=== PATIENT | female | born 1935 | race Caucasian/White ===

== ENCOUNTER 2016-11-22 05:23 | Day surgery (SDC) | payer MEDICARE, OTHER ==
[2016-10-31 11:20] VITALS: BMI 30.2
--- NOTE | 2016-11-02 08:11 | PREOPHP ---
DATE OF ADMISSION: 11/01/2016 HISTORY OF PRESENT ILLNESS: This 80-year-old patient is admitted for elective cataract surgery of the right eye. The patient has had decreased vision in both eyes over the past year which has been progressive in nature without prior history of eye disease or injury. The patient does have a positive systemic history of diabetes mellitus, hyperlipidemia, hypertension, syncope and hydronephrosis. MEDICATIONS: 1. Atenolol. 2. Metformin. ALLERGIES: PENICILLIN. SULFA. PHYSICAL EXAMINATION: The visual acuity best correct is 20/60 in each eye. External examination is noted to be within normal limits. The patient does have a nuclear sclerotic and posterior subcapsular cataract, greater in the right eye than the left eye. Applanation tonometry 17 mmHg. Examination of the retina is noted to be within normal limits. DIAGNOSIS: Cataract, right eye. PLAN: Cataract extraction with lens implant, right eye. The risks and alternatives to the surgery have been discussed with the patient, as well as the hope for improvement of visual acuity, leading to greater ability to perform activities of daily living. The patient understands this and agrees to proceed with surgery. Dictated By: Adebayo Chowdary MD /gray/ /Document#: [id number]
--- NOTE | 2016-11-21 17:00 | PREOPHP ---
DATE OF ADMISSION: 11/22/2016 HISTORY OF PRESENT ILLNESS: This 80-year-old patient is admitted for elective cataract surgery of the right eye. The patient has had decreased vision in both eyes for the past 1 year without prior history of eye disease or injury. PAST MEDICAL HISTORY: The patient's systemic history is positive for diabetes mellitus, hyperlipidemia, systemic hypertension, syncope, and hydronephrosis. MEDICATIONS: Atenolol and metformin. ALLERGIES: PENICILLIN AND SULFA. PHYSICAL EXAMINATION: EYES: On examination, the visual acuity with best correction, is 20/60 in both eyes. Slit lamp examination reveals nuclear sclerotic and posterior subcapsular cataract changes in both eyes. Applanation tonometry 17 mmHg and examination of the retina is within normal limits. DIAGNOSIS: Cataract, right eye. PLAN: Cataract extraction with lens implant, right eye. The risks and alternatives of the surgery have been discussed with the patient, as well as the hope for improvement of visual acuity leading to greater ability to perform activities of daily living. The patient understands this and agrees to proceed with surgery. Dictated By: Adebayo Chowdary MD /gray/davon /Document#: [id number]
[~2016-11-22] VITALS: Ht 157.5 cm; Wt 77.2 kg
[2016-11-22] VITALS (16 sets, daily range): BP systolic 55–134; BP diastolic 33–69; PULSE 54–78; RESP 14–25; Ht 157.5 cm; Wt 77.2 kg
[~2016-11-22 05:23] MED LIST: CIPROFLOXACIN 0.3% 2.5 ML OPH OPER SCH; CYCLOPENTOLATE/PHENYLEPH 2 ML OPH OPER SCH; DICLOFENAC 0.1% 2.5 ML OPH OPER SCH; TROPICAMIDE 1% 2 ML OPH OPER SCH
[2016-11-22] MEDS ORDERED: DEXAMETHASONE 4 MG/ML 1 ML INJ ONE (06:28)
[2016-11-22] MEDS ORDERED: GENTAMICIN 80 MG INJ ONE (06:28)
[2016-11-22] MEDS ORDERED: TETRACAINE 0.5% 4 ML OPH ONE ×2 (06:28→08:04)
[2016-11-22] MEDS ORDERED: LIDOCAINE 4% (MPF) 5 ML INJ ONE (06:28)
[2016-11-22] MEDS ORDERED: CARBACHOL 0.01% 1.5 ML OPH INJ ONE (06:28)
[2016-11-22] MEDS ORDERED: EPINEPHrine 1 MG INJ ONE (06:30)
[2016-11-22] MEDS ORDERED: HYALURONATE/CHONDROITIN 1ML OPH INJ ONE (06:31)
[2016-11-22] MEDS ORDERED: ATEN-51 PO (06:46)
[2016-11-22] MEDS ORDERED: METF500T4 PO (06:46)
[2016-11-22] MEDS ORDERED: MAGN400O4 PO (06:46)
[2016-11-22] MEDS ORDERED: MAGN400T28 PO (06:46)
[2016-11-22] MEDS ORDERED: OMEP20CA16 PO (06:46)
[2016-11-22] MEDS ORDERED: DIAZ2TAB3 PO (06:46)
[2016-11-22] MEDS ORDERED: LIDOCAINE 1% (MDV) 20 ML INJ ONE (07:39)
[2016-11-22] MEDS ORDERED: PROPOFOL 20 ML ONE (07:39)
[2016-11-22] MEDS ORDERED: GENTAMICIN 80 MG INJ INJ ONE (07:53)
[2016-11-22] MEDS ORDERED: CARBACHOL 0.01% 1.5 ML OPH INJ RIGHT EYE ONE (07:53)
[2016-11-22] MEDS ORDERED: DEXAMETHASONE 4 MG/ML 1 ML INJ INJ ONE (07:53)
[2016-11-22] MEDS ORDERED: HYALURONATE/CHONDROITIN 1ML OPH INJ IO ONE (07:53)
[2016-11-22] MEDS ORDERED: FENTAnyl 50 MCG/ML VIAL ONE ×2 (08:26→08:51)
[2016-11-22] MEDS ORDERED: hydrALAzine 20 MG INJ ONE (08:39)
--- NOTE | 2016-11-22 08:56 | OPR ---
Date/Time of Note Date/Time of Note DATE: 11/22/16 TIME: 08:54 Operative Report Preoperative Diagnosis cataract od Postoperative Diagnosis same Operation/Procedure Performed cataract extraction with lens impalnt od Anesthesia: MAC Estimated Blood Loss: none Grafts/Implants lens impant Complications: None SAMMY GARCIA MD Nov 22, 2016 08:56
[2016-11-22] MEDS ORDERED: ONDANSETRON 4 MG INJ IV PRN (09:00)
[2016-11-22] MEDS ORDERED: LABETALOL HCL 20MG INJ IV PRN (09:00)
[2016-11-22] MEDS ORDERED: FENTAnyl 50 MCG/ML VIAL IV PRN ×2 (09:00)
[2016-11-22] MEDS ORDERED: hydrALAzine 20 MG INJ IV PRN (09:00)
--- NOTE | 2016-11-22 11:00 | OPR ---
DATE OF OPERATION: 11/22/2016 PREOPERATIVE DIAGNOSIS: Cataract, right eye. POSTOPERATIVE DIAGNOSIS: Cataract, right eye. OPERATIVE PROCEDURE: Cataract extraction with lens implant, right eye. SURGEON: Adebayo Chowdary MD. ANESTHESIA: Anesthesia provided Carlita Muñoz CRNA PROCEDURE: The patient was brought to the operating room and placed on the table with an IV in place and the patient attached to an maintenance of way superintendent. Oxygen was given via face mask. After some intravenous sedation was administered, local anesthesia was given using Xylocaine 2% with epinephrine, mixed with Marcaine 0.5%. This was given in a lid block and retrobulbar injection. The patient was then prepped and draped in the usual sterile manner. A wire lid speculum was inserted between the lids of the right eye. A Superblade was used to enter the anterior chamber at the corneoscleral limbus at the 10:30 o'clock position. A separate incision was made using a 3.0-mm keratome which entered the corneoscleral junction at the 12 o'clock position. Through this 3- mm opening, an irrigating cystotome was introduced into the anterior chamber. The chamber was filled with Viscoat and an anterior capsulotomy was performed. Balanced salt solution was then used for hydrodissection of the lens. A phacoemulsification handpiece was then brought into the field and introduced into the anterior chamber. The lens nucleus was emulsified using a deep groove and cracking the nucleus into quadrants. Following this, each quadrant was aspirated and emulsified at the pupillary margin. After this was completed, the irrigation/aspiration handpiece was brought to the field, introduced into the posterior chamber, and the lens cortical material was removed. When this was completed, additional Viscoat was injected into the anterior and posterior chambers. The 3-mm opening had its internal lips enlarged, and then the posterior chamber intraocular lens measuring 22.0 diopters ([employer]) model LI61AO was then injected into the posterior chamber using the lens injector system. After the leading haptic was introduced into the capsular bag and the lens optic was present in the center of the eye, the injector was removed and the trailing haptic was grasped with non-toothed forceps and introduced into the capsular fold superiorly. A Sinskey hook was then used to rotate the intraocular lens so that the lips were oriented in the horizontal meridian. One 10-0 nylon suture was placed across the wound. Prior to tying, the irrigation/aspiration handpiece was reintroduced into the anterior chamber to remove the Viscoat. Miochol was instilled to constrict the pupil, and then the 10-0 nylon suture was tied. The ends were cut short and then the knot was buried. Then, 0.5 mL of dexamethasone and 0.5 mL of Ancef were injected into the sub-Tenon space in the inferior fornix. Ciloxan drops were then placed on the surface of the eye. The speculum was removed and a patch was applied. The patient then left the operating room in satisfactory condition. Dictated By: Adebayo Chowdary MD /gray/lisa /Document#: [id number]
[2016-11-22 12:33] LABS: CALCIUM 9.4 mg/dl (8.4-10.2); CREATININE 0.48 mg/dl (0.44-1.00)
== END 2016-11-22 10:32 ==
LOC: SDS 05:23
PROVIDERS: ATTEND Ophthalmology
DX: H25.11 Age-related nuclear cataract, right eye (principal); E11.9 Type 2 diabetes mellitus without complications
CPT/HCPCS: 66984; 80048; 82962; J0171; J0360; J1100; J1580; J3010; V2632